=== PATIENT | male | born 1960 | race Caucasian/White ===

== ENCOUNTER 2017-11-10 07:55 | Day surgery (SDC) | payer MEDICARE, MEDICAID, SELFPAY ==
[2017-11-05 10:55] VITALS: BMI 61.7
--- NOTE | 2017-11-05 11:22 | SUR.PREOP ---
Addendum entered by Sarah Beth Trinh RN 11/06/17 14:25: cardiac clearance recieved placed on chart Original Note: CONTACTED [facility] CARDIO/PULMONARY SPOKE W/RONEN- LEFT MESSAGE FOR DR SEO'S NURSE RE NEED FOR CARDIAC CLEARANCE W/DATE TO STOP COUMADIN.
[2017-11-10] VITALS (8 sets, daily range): BP systolic 91–117; BP diastolic 56–75; PULSE 60–61; RESP 18; TEMP 36.4–36.8; O2SAT 91–100
--- NOTE | 2017-11-10 08:28 | P.PN_ITS ---
[facility] Anesthesia Checklist - Patient Identification Patient Identification: Arm Band, Verbal (Name & ) - Structural Data Admitted From: Home Planned Operative Procedure/s: colonoscopy Consent for Planned Operative Procedure(s) Verified: Yes Verified Documents: Surgical Consent - NPO Status Verified Time NPO: 00:00 - Additional verifications Patient : No Anesthesia Reactions: No Hx Blood Transfusions: No Blood Transfusion Reaction: No Cephalosporin Allergy: No Previous Colonoscopy: No - Cardiovascular Assessment Heart Sounds: S1 & S2 Pulse Strength: Strong Pulse Rhythm: Regular Peripheral Edema: No - Airway Assessment C-Spine Mobility Assessed: Yes TMJ Mobility Assessed: Yes Dentition: Good Dentition - Neurological Assessment Level of Consciousness: Awake, Alert, Appropriate Hx Seizures: No Numbness or tingling in extremities: No - Anesthesia Plan Anesthesia Risk discussed: Yes Anesthesia Plan: Verified ASA Class: III Anesthesia Type: MAC [facility] Anesthesia HX I have reviewed the patient's past medical history: Yes Medical History: Reports:: Arrhythmia, Atrial Fibrillation, Congestive Heart Failure, Deep Vein Thrombosis, Diabetes Mellitus Type 2 (METFORMIN), Hyperlipidemia, Hypertension, Internal Pacemaker Denies:: Diabetes Mellitus Type 1, Lung Disease Other Surgeries: Yes: Appendectomy, Colonoscopy, Pacemaker Comment: toya valle *Family Hx:: Unable to obtain
--- NOTE | 2017-11-10 08:48 | HMH.PROC ---
[facility] Procedure Note Procedure Note:: Colonoscopy Procedure Report: Colonoscopy with cold snare polypectomy Endoscopist: Eric Benoit II, MD Referring physician: Maida CORDERO Date of Procedure: November 10, 2017 Equipment: Olympus 180 variable stiffness pediatric colonoscope Sedation: MAC sedation Indication: Mr. Dunn is a 57-year-old gentleman who is here for follow-up screening/surveillance colonoscopy. He did have a colonoscopy in August 2015 (Dr. Andie Curran) and had multiple adenomatous colon polyps removed. Almost all of these polyps were adenomatous and his rectal polyp did have surface high-grade dysplasia and was nearly 2 cm in size. The patient reports no abdominal pain, weight loss, change in his bowel habits or rectal bleeding. Procedure: Prior to the procedure, a history and physical exam was performed, and patient's medications and allergies were reviewed. The risks, benefits and alternatives of the sedation and procedure were discussed with the patient. All questions were answered and informed consent was obtained. The patient was brought to the procedure room. Patient identification and proposed procedure were verified by the physician and the nurse. The patient was placed in a left lateral decubitus position and the scope was passed under direct vision. Throughout the procedure, the patient's blood pressure, pulse, and oxygen saturations were monitored continuously. The colonoscopy was accomplished without difficulty. The patient tolerated the procedure well. Findings: On digital rectal examination there was normal rectal tone. There were no external hemorrhoids. The prostate was 2+, smooth, soft, symmetric without nodules. The colonoscope was introduced through the anal canal to the rectum and advanced to the cecum. The ileocecal valve and appendiceal orifice were identified. The scope was advanced a short distance into the ileum which appeared grossly normal. The scope was then withdrawn into the colon. There were 2 diminutive colon polyps identified in the ascending ?1 and descending ?1. These ranged in size from 5-6 mm and were all removed via cold snare polypectomy. The remaining cecum, ascending, transverse, descending, sigmoid and rectum were grossly normal. There were no other mucosal abnormalities identified. Upon retroflexion within the rectum there were grade 1 internal hemorrhoids. Impression: 1. Diminutive colonic polyps ?2 2. Grade 1 internal hemorrhoids Plan: I will follow up the polyp pathology and recommend repeat colonoscopy again in 5 years based upon the polyp histology. I would encourage fiber supplementation on a long-term daily maintenance basis.
--- NOTE | 2017-11-10 09:18 | P.PCN_ITS ---
[facility] Procedure Note Procedure Note:: Colonoscopy Procedure Report: Colonoscopy with cold snare polypectomy Endoscopist: Eric Benoit II, MD Referring physician: Maida CORDERO Date of Procedure: November 10, 2017 Equipment: Olympus 180 variable stiffness pediatric colonoscope Sedation: MAC sedation Indication: Mr. Dunn is a 57-year-old gentleman who is here for follow-up screening/surveillance colonoscopy. He did have a colonoscopy in August 2015 (Dr. Andie Curran) and had multiple adenomatous colon polyps removed. Almost all of these polyps were adenomatous and his rectal polyp did have surface high- grade dysplasia and was nearly 2 cm in size. The patient reports no abdominal pain, weight loss, change in his bowel habits or rectal bleeding. Procedure: Prior to the procedure, a history and physical exam was performed, and patient' s medications and allergies were reviewed. The risks, benefits and alternatives of the sedation and procedure were discussed with the patient. All questions were answered and informed consent was obtained. The patient was brought to the procedure room. Patient identification and proposed procedure were verified by the physician and the nurse. The patient was placed in a left lateral decubitus position and the scope was passed under direct vision. Throughout the procedure, the patient's blood pressure, pulse, and oxygen saturations were monitored continuously. The colonoscopy was accomplished without difficulty. The patient tolerated the procedure well. Findings: On digital rectal examination there was normal rectal tone. There were no external hemorrhoids. The prostate was 2+, smooth, soft, symmetric without nodules. The colonoscope was introduced through the anal canal to the rectum and advanced to the cecum. The ileocecal valve and appendiceal orifice were identified. The scope was advanced a short distance into the ileum which appeared grossly normal. The scope was then withdrawn into the colon. There were 2 diminutive colon polyps identified in the ascending ?1 and descending ? 1. These ranged in size from 5-6 mm and were all removed via cold snare polypectomy. The remaining cecum, ascending, transverse, descending, sigmoid and rectum were grossly normal. There were no other mucosal abnormalities identified. Upon retroflexion within the rectum there were grade 1 internal hemorrhoids. Impression: 1. Diminutive colonic polyps ?2 2. Grade 1 internal hemorrhoids Plan: I will follow up the polyp pathology and recommend repeat colonoscopy again in 5 years based upon the polyp histology. I would encourage fiber supplementation on a long-term daily maintenance basis.
== END 2017-11-10 10:11 | disposition home or self-care (01) ==
LOC: OUTP 07:57
PROVIDERS: Family Provider Family Medicine; PCP Family Medicine; Visit Provider Internal Medicine Gastroenterology
PROC: 0DJD8ZZ Inspection of Lower Intestinal Tract, Via Natural or Artificial Opening Endoscopic (ICD-10-PCS; CPT 45378; principal; 2017-11-10 09:00)
DX: Z12.11 Encounter for screening for malignant neoplasm of colon (principal); Z86.010 Personal history of colon polyps; K63.5 Polyp of colon; K64.0 First degree hemorrhoids
CPT/HCPCS: 45380; 88305

== ENCOUNTER → 2019-09-24 10:03 | Outpatient (CLI) | payer MEDICARE, MEDICAID, SELFPAY ==
--- NOTE | 2019-09-24 10:10 | XR_ITS ---
PROCEDURE: XR FEMUR RT 2V CLINICAL INDICATION: LOCALIZED SWELLING RT LEG COMPARISON: No exams were available for comparison FINDINGS: There is prominent periosteal new bone formation of the midshaft of the femur secondary to an old healed fracture. Otherwise alignment is near anatomical. There is no acute fracture seen. There are periarticular calcifications or ossifications adjacent to the greater trochanter. There is minor asymmetrical joint space narrowing of the right hip. The the supracondylar femur appears intact. The soft tissues of the thigh appear grossly normal. There are multiple surgical jacob suprapubic location of the pelvis. The right innominate bone right pubic bones appear intact. There is faint calcification of the superficial femoral artery and popliteal artery. IMPRESSION: No acute findings. Dictated by: Dr. Luis Miguel Muhammad MD 09/24/2019 11:[address] Luis Miguel Muhammad MD in [place] 09/24/2019 11:11
== END ==
PROVIDERS: PCP Family Medicine; Visit Provider Family Medicine
DX: R22.41 Localized swelling, mass and lump, right lower limb (principal)
CPT/HCPCS: 73552

== ENCOUNTER → 2020-04-17 12:00 | Outpatient (CLI) | payer MEDICARE, MEDICAID, SELFPAY ==
--- NOTE | 2020-04-17 12:12 | XR_ITS ---
PROCEDURE: XR KNEE RT 3V CLINICAL INDICATION: POSTERIOR RIGHT KNEE PAIN COMPARISON: No exams were available for comparison FINDINGS: No fracture or dislocation. No lytic or blastic change. There is normal mineralization. There are mild osteoarthritic changes involving all 3 compartments. Increased density is present in the suprapatellar region consistent knee joint effusion. There is mild lateral subluxation of the tibia by 6 mm Other findings:None. IMPRESSION: Mild osteoarthritis with knee joint effusion Dictated by: Willam Rosen MD 04/17/2020 12:24 Electronically signed by Willam Rosen MD in [place] 04/17/2020 12:25
== END ==
PROVIDERS: PCP Family Medicine; Visit Provider Nurse Practitioner Family
DX: M25.561 Pain in right knee (principal)
CPT/HCPCS: 73562

== ENCOUNTER → 2022-08-22 09:34 | Outpatient (CLI) | payer MEDICARE, MEDICAID, SELFPAY ==
--- NOTE | 2022-08-22 09:47 | CT_ITS ---
FINAL REPORT TECHNIQUE: Thin section axial CT images with coronal and sagittal reformats were performed. This study was performed with techniques to keep radiation doses as low as reasonably achievable (ALARA). Individualized dose reduction techniques using automated exposure control or adjustment of mA and/or kV according to the patient''s size were employed. CLINICAL HISTORY: lT KNEE PAIN FINDINGS: CT LEFT KNEE WITHOUT CONTRAST There are no fractures. There are mild degenerative changes. There is a moderate joint effusion. There are moderate vascular calcifications. IMPRESSION: Mild degenerative changes with a moderate joint effusion. No acute bony abnormality. Reviewed, Interpreted and Dictated by Arsh Borges III, MD Transcribed by Marisol Lindsey Authenticated and [facility]
== END ==
PROVIDERS: PCP Family Medicine; Visit Provider Family Medicine
DX: M25.562 Pain in left knee (principal)
CPT/HCPCS: 73700

== ENCOUNTER 2023-10-23 11:03 | Outpatient (CLI) | payer MEDICARE, SELFPAY | END 2023-10-23 23:59 | LOC: RAD 11:04 | PROVIDERS: PCP Family Medicine; Visit Provider Family Medicine | DX: M25.562 Pain in left knee (principal) ==

== ENCOUNTER 2023-11-11 09:43 | Outpatient (CLI) | payer MEDICARE, SELFPAY ==
--- NOTE | 2023-11-11 09:50 | XR_ITS ---
FINAL REPORT CLINICAL HISTORY: RT ANKLE PAIN x 3 yrs lateral sided pain FINDINGS: RIGHT ANKLE: Three views of the right ankle were obtained. There is no acute fracture or dislocation. The joint spaces and mortise are intact. There is moderate vascular calcification in the tibial vessels. IMPRESSION: No acute process. Reviewed, Interpreted and Dictated by Rey White MD Transcribed by Wood Brooks Authenticated and [facility]
--- NOTE | 2023-11-11 09:51 | XR_ITS ---
FINAL REPORT CLINICAL HISTORY: RT ANKLE AND JOINT PAIN x 3 yrs lateral sided pain FINDINGS: 3 views of the right foot were obtained. There is no acute fracture or dislocation. The joint spaces are intact. The soft tissues are unremarkable. IMPRESSION: No acute process. Reviewed, Interpreted and Dictated by Rey White MD Transcribed by Wood Brooks Authenticated and [facility]
== END 2023-11-11 23:59 ==
LOC: RAD 09:46
PROVIDERS: PCP Family Medicine; Visit Provider Family Medicine
DX: M25.571 Pain in right ankle and joints of right foot (principal)
CPT/HCPCS: 73610; 73630

== ENCOUNTER 2024-01-01 11:10 | Outpatient (CLI) | payer MEDICARE, SELFPAY ==
--- NOTE | 2024-01-01 11:16 | XR_ITS ---
FINAL REPORT CLINICAL HISTORY: medial sided KNEE PAIN COMPARISON: None FINDINGS: Three views of the left knee reveal no evidence of fracture or dislocation. The bony alignment is normal. Mild degenerative changes present. A small joint effusion is present as well. Vascular calcifications are identified. IMPRESSION: Mild degenerative change with a small joint effusion. Reviewed, Interpreted and Dictated by Arsh Borges III, MD Transcribed by Jillian Ren Authenticated and [facility]
== END 2024-01-01 23:59 ==
LOC: RAD 11:12
PROVIDERS: PCP Family Medicine; Visit Provider Nurse Practitioner
DX: M25.562 Pain in left knee (principal)
CPT/HCPCS: 73562

== ENCOUNTER 2025-07-16 11:22 | Emergency (ER) | payer MEDICARE, SELFPAY ==
--- OUTSIDE RECORDS SUMMARY | 2025-05-04 17:00 | XMS_ITS | Encounter Summary ---
Author Organization [email or web address] ([place], [place], [place], [place]) Address [address] [place] [address] Care Team Providers Care Construction Accountant Name Role Phone Unavailable Primary Care Provider Unavailabl e Reason for Visit * Reason Comments Pacemaker /ICD Home Monitoring Encounter Details Date Type Department Care Team (Late st Contact Info) Description 05/04/2025 5:00 PM EDT Clinical Support [facility] Electrophysiology [address] [place], [place] [phone] [place] [address] [place] [address] [address] [place] [address] Encounter for adjustment or management of cardiac device (Primary Dx); Permanent atrial fibrillation (HCC); SSS (sick sinus syndrome) (HCC); Cardiac pacemaker in situ Social History Tobacco Use Types Packs/Day Years Used Date Smoking Tobacco: Never Passive Smoke Exposure: Never Smokeless Tobacco: Never Alcohol Use Standard Drinks/Week Comments Yes 0 (1 standard drink = 0.6 oz pur e alcohol) socially Family and Community Support Answer Napoleon e Recorded Help with Day to Day Activities Not on file 12/30/2023 Feeling Lonely or Isolated Not on file 12/29 Educational Attainment Answer Date Asa rded Speak language other than Swazi at home Not on file 12/30/2023 Want help with school or training Not on file 12/30/2023 Substance Use Answer Date Recorded Used prescription meds for non-medical reasons N ot on file 12/30/2023 Used illegal drugs past 12 months Not on file 12/30/2023 Sex and Gender Information Value Date Recorded Sex Assigned at Not on file Legal Sex Male 1:32 PM CDT Gender Identity Not on file Sexual Orientation Not on file documented as of this encounter Plan of Treatment Not on file documented as of this encounter Visit Diagnoses Diagnosis Encounter for adjustment or management of cardiac device- Primary Permanent atrial fibrillation (HCC) Atrial fibrillation SSS (sick sinus syndrome) (HCC) Sinoatrial node dysfunction Cardiac pacemaker in situ documented in this encounter
--- OUTSIDE RECORDS SUMMARY | 2025-05-22 03:00 | XMS_ITS | Encounter Summary ---
Author Organization [employer] ([place], [place]) Address [address] [place] [address] Care Team Providers Care Skin Piler Name Role Phone Unavailable Primary Care Provider Unavailabl e Reason for Visit * Reason Comments Pacemaker /ICD Home Monitoring Encounter Details Date Type Department Care Team (Late st Contact Info) Description 05/22/2025 3:00 AM EDT Clinical Support [facility] Electrophysiology [address] [place], [place] [phone] [place] [address] [place] [address] [address] [place] [address] Encounter for adjustment or management of cardiac [...] Date Asa rded Speak language other than Indonesian at home Not on file 12/30/2023 Want [...]
[2025-07-16 11:32] VITALS: BP 125/92; PULSE 62; RESP 15; TEMP 36.8; O2SAT 96; BMI 27.9
--- OUTSIDE RECORDS SUMMARY | 2025-07-16 11:45 | XMS_ITS | Referral Summary ---
Author Organization [employer] ([place], [place], [place], [place]) Address [address] [place] [address] Care Team Providers Care Gaming Director Name Role Phone Unavailable Primary Care Provider Unavailabl e Encounters Date Type Department Care Team Description 05/22/2025 3:00 AM EDT Clinical Support [facility] Electrophysiology [address] [place], [place] [phone] Randy Ralph MD Encounter for adjustment or management of cardiac device (Primary Dx); Permanent atrial fibrillation (HCC); SSS (sick sinus syndrome) (HCC); Cardiac pacemaker in situ 05/04/2025 5:00 PM EDT Clinical Support [facility] Electrophysiology [address] [place] [phone] Randy Ralph MD Encounter for adjustment or management of cardiac device (Primary Dx); Permanent atrial fibrillation (HCC); SSS (sick sinus syndrome) (HCC); Cardiac pacemaker in situ 04/21/2025 4:00 PM EDT Clinical Support [facility] Electrophysiology [address] [place] [phone] Randy Ralph MD Encounter for adjustment or management of cardiac device (Primary Dx); Permanent atrial fibrillation (HCC); SSS (sick sinus syndrome) (HCC); Cardiac pacemaker in situ from Last 3 Months Allergies No known active allergies Medications aspirin 81 MG EC tablet Take 1 tablet (81 mg total) by mouth daily. Active warfarin (COUMADIN, JANTOVEN) 10 MG tablet Take 1 tablet (10 mg total) by mouth daily. Active b complex vitamins tablet Take 1 tablet by mouth daily. Active omeprazole (PriLOSEC) 20 MG capsule Take 1 capsule (20 mg total) by mouth daily. Active SITagliptin phosphate (JANUVIA) 100 MG tablet Take 1 tablet (100 mg total) by mouth daily. Active spironolactone (ALDACTONE) 25 MG tablet Take 0.5 tablets (12.5 mg total) by mouth daily. Active metFORMIN (GLUCOPHAGE) 1000 MG tablet Take 1 tablet (1,000 mg total) by mouth 2 (two) times daily with breakfast and dinner Look-alike/Nina nd-alike medication. Active pravastatin (PRAVACHOL) 20 MG tablet Take 1 tablet (20 mg total) by mouth daily. Active meloxicam (MOBIC) 15 MG tablet Take 1 tablet (15 mg total) by mouth daily. Active sacubitriL-vals faby (Entresto) 24-26 mg tablet Take 1 tablet by mouth 2 (two) times daily Must schedule an appointment for further refills. 60 tablet 5 Active Active Problems Problem Noted Date Diagnosed Date Encounter for adjustment or management of cardia c device 11/25/2024 Cardiac pacemaker in situ 04/01/2024 Diabetes mellitus 02/25/2024 Hyperlipidemia 02/25/2024 HTN (hypertension) 02/25/2024 Permanent atrial fibrillation 02/25/2024 SSS (sick sinus syndrome) 02/25/2024 Social History Tobacco Use Types Packs/Day Years [...] Date Asa rded Speak language other than Tanzanian at home Not on file 12/30/2023 Want [...] on file Sexual Orientation Not on file Last Filed Vital Signs Vital Sign Reading Time Taken Comments Blood Pressure 122/76 02/27/2024 9:32 AM EDT Pulse 62 02/27/2024 9:32 AM EDT Temperature - - Respiratory Rate - - Oxygen Saturation 96% 02/27/2024 9:32 AM EDT Inhaled Oxygen Concentration - - Weight 91.3 kg (201 lb 6 oz) 02/27/2024 9:32 AM EDT Height 179.1 cm (5' 10.5 ) 02/27/2024 9:32 AM ED T Body Mass Index 28.49 02/27/2024 9:32 AM EDT Plan of Treatment Not on file Medical Devices Implanted Type Area Animal Care Assistant Device Identifier Shelf Expiration Date Model / Serial / Lot Pacemakers-10/20 Implanted:10/20 (Quantity not on file) Pacemakers [employer] QU[employer]RA RF [id number] GLUED WOOD TESTER-P / [id number] / Description:DEPENDENT 03-11-24 SPOKE TO GRAHAM AND TOLD HIM TO MAKE EP APPT FOR NOVEMBER OR DECEMBER 2024-[facility] Insurance [employer] MEDICARE HMO
--- OUTSIDE RECORDS SUMMARY | 2025-07-16 11:45 | XMS_ITS | Clinical Summary ---
Author Organization [employer] ([place], [place], [place], [place]) Address [address] [place] [address] Care Team Providers Care Juvenile Justice Officer Name Role Phone Unavailable Primary Care Provider Unavailabl e Allergies No known active allergies Medications aspirin [...] fibrillation 02/25/2024 SSS (sick sinus syndrome) 02/25/2024 Encounters Date Type Department Care Team Description 05/22/2025 3:00 AM EDT Clinical Support [facility] Electrophysiology [address] [place], [place] [phone] Randy Ralph MD Encounter for adjustment or management of cardiac device (Primary Dx); Permanent atrial fibrillation (HCC); SSS (sick sinus syndrome) (HCC); Cardiac pacemaker in situ 05/04/2025 5:00 PM EDT Clinical Support [facility] Electrophysiology [address] [place] [phone] Randy Ralph MD Encounter for adjustment or management of cardiac device (Primary Dx); Permanent atrial fibrillation (HCC); SSS (sick sinus syndrome) (HCC); Cardiac pacemaker in situ 04/21/2025 4:00 PM EDT Clinical Support [facility] Electrophysiology [address] [place] [phone] Randy Ralph MD Encounter for adjustment or management of cardiac device (Primary Dx); Permanent atrial fibrillation (HCC); SSS (sick sinus syndrome) (HCC); Cardiac pacemaker in situ from Last 3 Months Family History Medical History Relation Name Comments Atrial fibrillation Father Hypertension Mother Relation Name Status Comments Father Mother Social History Tobacco Use Types Packs/Day Years [...] Date Asa rded Speak language other than Montserratian at home Not on file 12/30/2023 Want [...] 02/27/2024 9:32 AM EDT Plan of Treatment Health Maintenance Due Date Last Done Comments CT Colonography 1958 Colonoscopy 1958 Colorectal Cancer Screening 1958 Diabetic Kidney Health Evalu ation (KED) 1958 FOBT/FIT 1958 Fit-DNA (Cologuard) 1958 Sigmoidoscopy 1958 Diabetic Eye Exam 1968 Depression Screening (12+) 1970 Tobacco Cessation Counseling and Screening (12+) 1970 Hepatitis C Screening 1976 DTAP/TDAP/TD VACCINES (1 - Tdap) 1977 Pneumococcal 50+ years (1 of 2 - PCV) 1977 Shingles Vaccine (Zoster) (1 of 2) 2008 Respiratory Syncytial Virus (RSV) Adult or (1 - Risk 60-74 years 1-dose series) 2018 Medicare Initial AWV G0438 10/21/2022 Hemoglobin A1C 02/25/2024 Falls Risk Screening 10/20/2024 COVID-19 VACCINE ( season) 2025 10/22/2022, 05/27/2022, 01/03/2021 Influenza Vaccine (#1) 2025 Medical Devices Implanted Type Area Internal Medicine Nurse Device Identifier Shelf Expiration Date Model / Serial / Lot Pacemakers-10/20 Implanted:10/20 (Quantity not on file) Pacemakers [employer] QU[employer] RF [id number] [employer]URAL G[employer] PLANT SUPERVISOR-P / [id number] / Description:DEPENDENT 5-23-24 SPOKE TO GRAHAM AND TOLD HIM TO MAKE EP APPT FOR NOVEMBER OR DECEMBER 2024-[facility] [place] [id number]
--- NOTE | 2025-07-16 12:02 | [facility].EDGENADL ---
Discharge Plan Disposition Patient Disposition: Home, Self-Care Prescriptions Prescriptions: No Action metoprolol tartrate [Lopressor] 100 MG Tablet 100 mg PO BID warfarin [Jantoven] 10 MG Tablet 12 mg PO DAILY spironolactone 100 MG Tablet 100 mg PO DAILY lisinopril [Prinivil] 10 MG Tablet 1 mg PO DAILY omeprazole 20 MG Capsule.Dr 20 mg PO DAILY omega-3 fatty acids [Fish Oil] 300 MG Capsule 300 mg PO DAILY adfmgfotlvty-fdae-gnmli acid [Centrum Complete] 1 EACH Tablet 1 ea PO DAILY vitamin E (dl, acetate) 1,000 UNIT Capsule 1,000 unit PO DAILY aspirin [Aspir-Low] 81 MG Tablet.Dr 81 mg PO DAILY metformin 500 MG Tablet 1,000 mg PO DAILY bisoprolol fumarate 5 MG Tablet 5 mg PO DAILY sitagliptin phosphate [Januvia] 100 MG Tablet 100 mg PO DAILY Referrals Follow up/Referrals: Sima Stein MD [Primary Care Provider, Medical] - See instructions Activity Restrictions/Add. Instructions Additional Instructions/Restrictions: We initially attempted to use Surgicel on your finger which was unsuccessful subsequently we used silver nitrate to cauterize your wound. Please keep an eye on this for spreading redness or pus coming from the wound or return of the bleeding. Use point pressure if the bleeding does return and if you cannot get it to stop bleeding at home you may return. Clinical Impressions Clinical Impression: Avulsion of soft tissue, Anticoagulated Print Language Print Language: Setswana Discharge ED Provider: Israel Marques General Adult HPI General Chief complaint: Extremity Injury, Upper Stated complaint: AO 0900 Right hand injury to two fingers Time Seen by Provider: 07/16/25 11:54 Mode of Arrival: Ambulatory Source of Information: Patient Description of Symptoms (Recalled from ER Triage Doc. by RN): laceration to r hand middle finger. was sharpening a order planner knife. on a thinner History of Present Illness HPI narrative: Patient's long finger on the right hand had a dorsal tissue avulsion while sharpening a order planner's knife. Up-to-date on vaccinations. He is on Coumadin and therefore is having a difficult time with hemostasis. Thus, his emergency department visit. Related Data Home Medications ?Medication ?Instructions ?Recorded ?Confirmed aspirin 81 mg tablet,delayed 81 mg PO DAILY HEART 11/05/17 11/05/17 release (Aspir-Low) lisinopril 10 mg tablet (Prinivil) 1 mg PO DAILY BLOOD PRESSURE 11/05/17 11/10/17 metoprolol tartrate 100 mg tablet 100 mg PO BID BLOOD PRESSURE 11/05/17 11/05/17 (Lopressor) multivitamin-ferrous 1 ea PO DAILY Supplement 11/05/17 11/05/17 fumarate-folic acid 18 mg-400 mcg tablet (Centrum Complete) omega-3 fatty acids 300 mg capsule 300 mg PO DAILY Supplement 11/05/17 11/05/17 (Fish Oil) omeprazole 20 mg capsule,delayed 20 mg PO DAILY ACID REFLUX 11/05/17 11/05/17 release spironolactone 100 mg tablet 100 mg PO DAILY Fluid 11/05/17 11/05/17 vitamin E (dl, acetate) 450 mg 1,000 unit PO DAILY Supplement 11/05/17 11/05/17 (1,000 unit) capsule warfarin 10 mg tablet (Jantoven) 12 mg PO DAILY Blood thinner 11/05/17 11/10/17 bisoprolol fumarate 5 mg tablet 5 mg PO DAILY HEART 11/10/17 11/10/17 metformin 500 mg tablet 1,000 mg PO DAILY Diabetes 11/10/17 11/10/17 sitagliptin phosphate 100 mg 100 mg PO DAILY Diabetes 11/10/17 11/10/17 tablet (Januvia) Allergies Allergy/AdvReac Type Severity Reaction Status Date / Time No Known Allergies Allergy Verified 11/05/17 11:09 [facility] Disclaimer: The information contained in this section may have been updated after the patient was seen, as this information can be updated by other users. Social History Smoking Status: Never smoker alcohol intake: never current occupational status: other Travel in the last 8 weeks?: None caffeine: Yes ROS Obtained: Yes All systems reviewed & no additional complaints except as documented Physical Exam General General appearance: alert Respiratory Respiratory exam: Present normal lung sounds bilaterally Cardiovascular Cardiovascular exam: Present regular rate Expanded Upper Extremity Exam Right: Hand L/R back image:  1. Superficial tissue avulsion actively but slowly hemorrhaging Neurological Exam Neurological exam: Present alert and oriented X3 Medical Decision Making Medical Records Screening: Per USPSTF and CDC recommendations, given the prevalence of disease in our region, it is our hospital?s policy to screen for HIV and viral Hepatitis for all patients aged 18 and over and those with ongoing risk factors. Sourav Inquiry Pt receiving controlled substance: No Vital Signs: 07/16/25 11:32 07/16/25 12:30 Temperature 98.2 F Temperature Source Oral Pulse Rate 60 Pulse Rate [Right] 62 Respiratory Rate 15 Blood Pressure 124/83 Blood Pressure [Right Arm] 125/92 H Blood Pressure Mean 101 Blood Pressure Mean [Right Arm] 103 02 Sat by Pulse Oximetry 96 96 Oxygen Delivery Method Room Air Room Air Medical Decision Narrative: 64-year-old with above history and physical with superficial tissue avulsion and anticoagulated complicating this. Surgicel was placed will reassess 30 minutes after placement of this hemostatic agent. Reassessment 1250 Surgicel was not successful patient subsequently needed a digital block and silver nitrate to cauterize the superficial aspect of the bleeding wound which was successful. Wound management discussed patient discharged in stable condition. Procedures Miscellaneous Procedure Procedure Performed: Hemorrhage control with Surgicel Wound was exposed and an appropriate amount of braided Surgicel The wound was dressed with Surgicel then a 2 x 2 dressing and pressure dressing was placed on top of this Hemorrhage control was not achieved after 30 minutes of observation Subsequently patient had a digital block with 1% lidocaine with epinephrine 5 cc were used and silver nitrate electrocautery was used successfully making the wound hemostatic Critical Care Critical Care Time Critical Care Time: No
[2025-07-16 12:30] VITALS: BP 124/83; PULSE 60; O2SAT 96
[2025-07-16 12:58] VITALS: BP 124/83; PULSE 61; RESP 16; TEMP 36.8; O2SAT 98
== END 2025-07-16 12:59 | disposition home or self-care (01) ==
PROVIDERS: Emergency Provider Student in an Organized Health Care Education/Training Program; PCP Family Medicine
DX: S61.212A Laceration without foreign body of right middle finger without damage to nail, initial encounter (principal); W26.0XXA Contact with knife, initial encounter; Z79.01 Long term (current) use of anticoagulants
CPT/HCPCS: 12001; 99283; J2004